=== PATIENT | male | born 1955 | race Caucasian/White ===

== ENCOUNTER → 2016-08-26 | Outpatient (CLI) | payer BC ==
[~2016-08-26] MED LIST: AMOX-358 PO; TRAM-42 PO
--- NOTE | 2016-08-26 14:22 | Diagnostic Imaging Report ---
PROCEDURE: US Carotid Duplex Bilateral. TECHNIQUE: Multiple real-time grayscale images were obtained over the carotid arteries in various projections bilaterally. Additional duplex Doppler and color Doppler images were also obtained. INDICATION: Near syncope. FINDINGS: Grayscale images demonstrate no significant plaque. Carotid Doppler demonstrates patency of the common, internal and external carotid arteries bilaterally. There is antegrade flow in the vertebral arteries. Peak systolic velocities in the right ICA are 52, 53, and 54 cm/s and on the left 35, 53, and 53 cm/s. ICA/CCA ratios are up to 0.9 on the right and up to 0.9 on the left. IMPRESSION: Estimated underlying carotid stenosis is in the range of 0-25% bilaterally. Dictated by: Dictated on workstation # [id number]
== END ==
LOC: RAD 13:43
PROVIDERS: ATTEND Family Medicine
DX: R55 Syncope and collapse (principal)
CPT/HCPCS: 93880

== ENCOUNTER 2016-08-27 08:11 | Outpatient (RCR) | payer BC ==
[2016-10-13] MEDS ORDERED: ASPI-586 PO (12:30)
[2016-10-13] MEDS ORDERED: FURO20TA4 (12:30)
[2016-10-13] MEDS ORDERED: HYDR-3812 (12:30)
[2016-10-13] MEDS ORDERED: POTA10TA10 (12:30)
[2016-10-13] MEDS ORDERED: WARF-47 (12:30)
[2016-10-13] MEDS ORDERED: [UNRECOGNIZED DRUG - CODE] (12:30)
[2016-10-13] MEDS ORDERED: SIMV40TA4 (12:30)
[2016-10-13] MEDS ORDERED: AMIO200T2 (12:30)
[2016-10-13] MEDS ORDERED: METO-333 PO (16:31)
== END 2016-11-25 | disposition home or self-care (01) ==
LOC: CARD 08:11
PROVIDERS: ATTEND Family Medicine
DX: R55 Syncope and collapse (principal)
CPT/HCPCS: 93225; 93226

== ENCOUNTER → 2016-08-27 | Outpatient (CLI) | payer BC | LOC: CARD 08:08 | PROVIDERS: ATTEND Family Medicine | DX: R55 Syncope and collapse (principal) | CPT/HCPCS: 93005 ==

== ENCOUNTER 2016-10-13 11:36 | Emergency (ER) | payer BC ==
[~2016-10-13] VITALS: Ht 182.9 cm; Wt 90.7 kg
[2016-10-13] MEDS ORDERED: morphine INJ 10 MG/ML 1ML (SYR OR VIAL) ONE (11:42)
[2016-10-13] MEDS ORDERED: NS IV 1000 ML 1,000 ML ONE (11:42)
[2016-10-13] MEDS ORDERED: ASPIRIN 81 MG CHEW (CHILDREN'S ASA) PO ONE (11:45)
[2016-10-13 11:51] LABS: BASOPHILS % (AUTO) 0 % (0-10); EOSINOPHILS # (AUTO) 0.3 10^3/uL (0.0-0.3); EOSINOPHILS % (AUTO) 2 % (0-10); LYMPHOCYTES # (AUTO) 1.2 X 10^3 (1.0-4.0); LYMPHOCYTES % (AUTO) 9 % (12-44); MEAN CORPUSCULAR HEMOGLOBIN 29 PG (25-34); MEAN CORPUSCULAR HGB CONC 34 G/DL (32-36); MEAN CORPUSCULAR VOLUME 86 FL (80-99); MEAN PLATELET VOLUME 9.9 FL (7.4-10.4); MONOCYTES # (AUTO) 1.6 X 10^3 (0.0-1.0); MONOCYTES % (AUTO) 12 % (0-12); NEUTROPHILS # (AUTO) 10.4 X 10^3 (1.8-7.8); NEUTROPHILS % (AUTO) 78 % (42-75); PLATELET COUNT 315 10^3/uL (130-400); RED BLOOD COUNT 5.06 10^6/uL (4.35-5.85); RED CELL DISTRIBUTION WIDTH 13.3 % (10.0-14.5); WHITE BLOOD COUNT 13.4 10^3/uL (4.3-11.0)
--- NOTE | 2016-10-13 11:57 | ED Chest Pain ---
General Stated Complaint: A-FIB/LBP,POST AORTIC VALVE REPLACEMENT Source: patient Exam Limitations: no limitations (KELY FROST APRN) History of Present Illness Time seen by provider: 11:54 Initial Comments To ER with reports of atrial fibrillation, central chest pain, low blood pressure and near syncope at home. Patient had aortic valve replacement as well as the ascending aortic aneurysm resection at [facility] in [facility] by 6 days ago. He's had intermittent atrial fibrillation since discharge, nothing prior to this surgery however. According to the he had a clean coronary angiogram just prior to surgery. His chest pain is no different today than it has been past week. Timing/Duration: 1-2 days Severity/Quality: moderate Radiation: no radiation Activities at Onset: none ASA po FIRMWARE SOFTWARE VERIFICATION ENGINEER: No NTG SL FIRMWARE SOFTWARE VERIFICATION ENGINEER: No Associated Symptoms: shortness of breath (pain with breathing) (KELY FROST APRN) Allergies and Home Medications Allergies Uncoded Allergies: ERYTHROMYCIN (Adverse Reaction, Mild, rash, 01/06/16) Home Medications Amiodarone HCl 200 Mg Tablet, #60 (Reported) Aspirin 81 Mg Tablet.dr, 81 MG PO DAILY, (Reported) Betaxolol HCl 10 Mg Tablet, #30 (Reported) Furosemide 20 Mg Tablet, #60 (Reported) Hydrocodone/Acetaminophen 1 Each Tablet, #24 (Reported) Metoprolol Tartrate 25 Mg Tablet, 25 MG PO BID, #60 Ref 1 Prescribed by: SMITA ADAN on 10/13/16 1631 Potassium Chloride 10 Meq Tablet.er, #30 (Reported) Simvastatin 40 Mg Tablet, #30 (Reported) Warfarin Sodium 2 Mg Tablet, #30 (Reported) Review of Systems Constitutional: see HPI EENTM: No Symptoms Reported Respiratory: See HPI, Other (pleurodynia) Cardiovascular: No Symptoms Reported Genitourinary: No Symptoms Reported Musculoskeletal: no symptoms reported Skin: no symptoms reported Psychiatric/Neurological: No Symptoms Reported (KELY FROST APRN) Past Iucuiij-Gizhfd-Qzcdgi Hx Patient Social History Recent Foreign Travel: No Contact w/Someone Who Travel: No Recent Hopitalizations: No (KELY FROST APRN) Seasonal Allergies Seasonal Allergies: No (KELY FROST APRN) Surgeries HX Surgeries: Yes (Back surgery, Shoulder, Knee, Thumb) Surgeries: Adenoidectomy, Orthopedic, Tonsillectomy (KELY FROST APRN) Respiratory Hx Respiratory Disorders: No (KELY FROST APRN) Cardiovascular Hx Cardiac Disorders: No (KELY FROST APRN) Neurological Hx Neurological Disorders: No (KELY FROST APRN) Reproductive System Hx Reproductive Disorders: No (KELY FROST APRN) Genitourinary Hx Genitourinary Disorders: No (KELY FROST APRN) Gastrointestinal Hx Gastrointestinal Disorders: No (KELY FROST APRN) Musculoskeletal Hx Musculoskeletal Disorders: Yes (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) Musculoskeletal Disorders: Degenerate Disk Disease, Chronic Back Pain (KELY FROST APRN) Endocrine Hx Endocrine Disorders: No (KELY FROST APRN) HEENT HX ENT Disorders: Yes (wears glasses) (KELY FROST APRN) Cancer Hx Cancer: No (KELY FROST APRN) Psychosocial Hx Psychiatric Problems: No (KELY FROST APRN) Integumentary HX Skin/Integumentary Disorder: No (KELY FROST APRN) Blood Transfusions Hx Blood Disorders: No (KELY FROST APRN) Physical Exam Vital Signs Vital Sign - Last 12Hours (SMITA ADAN MD) Vital Signs Capillary Refill : (KELY FROST APRN) General Appearance: No Apparent Distress, WD/WN HEENT: PERRL/EOMI, TMs Normal Neck: Full Range of Motion, Normal Inspection Respiratory: Normal Breath Sounds, No Accessory Muscle Use, No Respiratory Distress Cardiovascular: Normal Peripheral Pulses, Irregularly Irregular (rate of 100- 120), Other (midline sternotomy incision is clean dry and intact with surrounding bruising but no drainage. Lung sounds are equal bilaterally.) Gastrointestinal: Non Tender, Soft Extremity: Normal Capillary Refill, Normal Inspection Neurologic/Psychiatric: Alert, Oriented x3, No Motor/Sensory Deficits Skin: Normal Color, Warm/Dry (KELY FROST APRN) Progress/Results/Core Measures Results/Orders Lab Results Laboratory Tests Test 10/13/16 11:44 10/13/16 15:48 Range/Units White Blood Count 13.4 H 4.3-11.0 10^3/uL Red Blood Count 5.06 4.35-5.85 10^6/uL Hemoglobin 14.9 13.3-17.7 G/DL Hematocrit 43 40-54 % Mean Corpuscular Volume 86 80-99 FL Mean Corpuscular Hemoglobin 29 25-34 PG Mean Corpuscular Hemoglobin Concent 34 32-36 G/DL Red Cell Distribution Width 13.3 10.0-14.5 % Platelet Count 315 130-400 10^3/uL Mean Platelet Volume 9.9 7.4-10.4 FL Neutrophils (%) (Auto) 78 H 42-75 % Lymphocytes (%) (Auto) 9 L 12-44 % Monocytes (%) (Auto) 12 0-12 % Eosinophils (%) (Auto) 2 0-10 % Basophils (%) (Auto) 0 0-10 % Neutrophils # (Auto) 10.4 H 1.8-7.8 X 10^3 Lymphocytes # (Auto) 1.2 1.0-4.0 X 10^3 Monocytes # (Auto) 1.6 H 0.0-1.0 X 10^3 Eosinophils # (Auto) 0.3 0.0-0.3 10^3/uL Basophils # (Auto) 0.0 0.0-0.1 10^3/uL Prothrombin Time 17.7 H 12.2-14.7 SEC INR Comment 1.5 H 0.8-1.4 Activated Partial Thromboplast Time 32 24-35 SEC Sodium Level 135 135-145 MMOL/L Potassium Level 3.9 3.6-5.0 MMOL/L Chloride Level 100 98-107 MMOL/L Carbon Dioxide Level 25 21-32 MMOL/L Anion Gap 10 5-14 MMOL/L Blood Urea Nitrogen 22 H 7-18 MG/DL Creatinine 0.97 0.60-1.30 MG/DL Estimat Glomerular Filtration Rate > 60 BUN/Creatinine Ratio 23 Glucose Level 134 H 70-105 MG/DL Calcium Level 9.4 8.5-10.1 MG/DL Magnesium Level 2.0 1.8-2.4 MG/DL Total Bilirubin 2.3 H 0.1-1.0 MG/DL Aspartate Amino Transf (AST/SGOT) 54 H 5-34 U/L Alanine Aminotransferase (ALT/SGPT) 120 H 0-55 U/L Alkaline Phosphatase 113 40-136 U/L Myoglobin 38.7 10.0-92.0 NG/ML Troponin I 0.78 *H 0.76 *H <0.30 NG/ML Total Protein 6.7 6.4-8.2 GM/DL Albumin 3.4 3.2-4.5 GM/DL (SMITA ADAN MD) My Orders Orders - SMITA ADAN MD Ekg Tracing (10/13/16 12:50) Troponin I (10/13/16 15:43) Metoprolol Tartrate (Ir) Tab (Lopressor (10/13/16 15:45) (SMITA ADAN MD) Medications Given in ED Current Medications Medications Dose Ordered Sig/Jameson Route Start Time Stop Time Status Last Admin Dose Admin Aspirin 324 mg ONCE ONCE PO 10/13/16 11:45 10/13/16 11:46 DC 10/13/16 13:15 243 MG Morphine Sulfate 10 mg STK-MED ONCE .ROUTE 10/13/16 11:42 10/13/16 11:49 DC 10/13/16 11:50 10 MG Sodium Chloride 1,000 ml @ ud STK-MED ONCE .ROUTE 10/13/16 11:42 10/13/16 11:49 DC 10/13/16 11:50 1,000 MLS/HR (SMITA ADAN MD) Vital Signs/I&O Vital Sign - Last 12Hours 10/13/16 10/13/16 10/13/16 11:40 11:40 11:40 Temp 97.2 Pulse 125 Resp 35 B/P (MAP) 101/71 Pulse Ox 94 94 O2 Delivery Nasal Cannula Room Air Nasal Cannula O2 Flow Rate 4.00 4.00 4.00 (SMITA ADAN MD) Progress Note : Progress Note I assumed care of the patient from Kely Frost APRN with evaluation in progress. Patient is here with complaint of left-sided chest pain that radiates into his neck. One week status post aortic valve replacement and aortic aneurysm repair in [place] by Dr. Valle. Patient noted to have elevated troponin. Does have history of pneumothorax status post surgery. Doing well until today when he had increasing chest pain on the left side. noted that he was somewhat hypotensive with systolic blood pressure 90 and brought him to the ER for further evaluation. Patient did have episode of paroxysmal atrial fibrillation this morning which markedly increases his pain and makes him weak. This was noted on presentation but quickly resolved on its own without any intervention. Post resolution EKG shows sinus rhythm without any significant abnormalities and compares well to previous. I did discuss the case with Dr. Valle in [place]. He states that he would be happy to the care for him at their hospital at this with the like to do or he can follow-up as scheduled. The troponin is likely the result of the surgery and not acutely diseases he had heart catheterization during the procedure and showed clean coronary arteries. We did discuss the pneumothorax and this appears to be somewhat resolved from previous per description. All findings and concerns were discussed with the patient and family. The will be comfortable taking him home but she would like to establish cardiology care here. I did discuss the case with Dr. Marquis and he will see the patient in the ER. 1545: Patient seen by him. We will repeat troponin and if there is declining, patient will be discharged home. He is also recommending metoprolol 5 mg by mouth twice a day first dose now. This was ordered. 1628: Repeat troponin has declined. I did discuss this with the patient and his . He is overall feeling better now. Discharged home with return precautions. Patient and family verbalize understanding instructions and agreement with plan. (SMITA ADAN MD) ECG Initial ECG Impression Date: Oct 13, 2016 Initial ECG Impression Time: 11:39 Initial ECG Rate: 124 Initial ECG Rhythm: A Fib/Flutter Comment Atrial fibrillation with rapid ventricular response. Question of inferior depression although wandering baseline noted on EKG. This was discussed with the radiologist who agrees with that assessment. Interpreted by me. EKG : EKG Time: 12:08 Rate: 81 Comment Sinus rhythm with normal axis. No evidence of ST elevation OR. Appears well to previous at outside facility of for October 2016. Interpreted by me. (SMITA ADAN MD) Diagnostic Imaging Diagonstic Imaging: Xray Plain Films/CT/US/NM/MRI: chest Comments [facility] [place], [place] NAME: HEMANT KRAUSE [facility] REC#: [id number] PT STATUS: REG ER : 1955 PHYSICIAN: KELY FROST PLATFORM MATERIAL HANDLER MANAGER ADMIT DATE: 10/13/16/ER Draft Date of Exam:10/13/16 CHEST 1 VIEW, AP/PA ONLY INDICATION: History of atrial fibrillation. Recent chest surgery. COMPARISON: None. FINDINGS: Single frontal radiographic view of the chest was obtained and demonstrates mild/moderate cardiomegaly. Pulmonary vasculature however is within normal limits. Lungs show some patchy opacities within the left lung base and potential small left effusion. No large effusion is seen on the right. There is soft tissue emphysema overlying the left chest, but no pneumothorax is seen on either side. Sternotomy wires are noted. Bony structures otherwise show no gross acute abnormalities. Prosthetic aortic valve is also present. IMPRESSION: 1. Soft tissue emphysema but no evidence of pneumothorax on either side. 2. Patchy atelectasis and/or infiltrate within the left lung base. 3. Small left effusion is not excluded. 4. Mild/ moderate cardiomegaly but no evidence of overt failure. Dictated on workstation # [id number] Dict: 10/13/16 1216 Trans: 10/13/16 1219 [id number] Interpreted by: BALDEMAR BRUNNER Electronically signed by: Diagonstic Imaging: CT Plain Films/CT/US/NM/MRI: chest Comments Draft Date of Exam:10/13/16 CT ANGIO CHEST W PROCEDURE: CT angiography of the chest with contrast. TECHNIQUE: Multiple contiguous axial images were obtained through the chest after uneventful bolus administration of intravenous contrast. Reconstructed CTA MIP acquisitions were also performed. INDICATION: Chest pain and shortness of breath. The patient had valve replacement one week ago. CONTRAST: 125 mL of Omnipaque 350 was administered intravenously. FINDINGS: There are aortic valve replacement artifacts and sternotomy fixated with wires in good position. There is soft tissue air seen along the left chest wall and in the left axilla and supraclavicular region. There is also pneumomediastinum and a small left pneumothorax. There is no pneumothorax on the right side. The cardiac size is enlarged with a small to moderate pericardial effusion. The thoracic aorta is normal in caliber with no dissection. The pulmonary arteries are well opacified with no filling defects to suggest pulmonary embolism. The thoracic aorta is normal in caliber with no dissection. There is homogeneous consolidation in the left lower lobe and to lesser extent in the right lower lobe, favored to be atelectasis related. Bilateral small pleural effusions are also seen. No significantly enlarged lymph nodes or masses are present. No hilar lymphadenopathy. No axillary lymphadenopathy. The osseous structures appear grossly unremarkable. IMPRESSION: 1. There is a 5% left pneumothorax and left chest wall and mediastinal air seen. This could potentially be residual postoperative and post chest tube placement and removal related to the recent surgery. Consider a followup chest x-ray tomorrow to ensure it is resolving. 2. Bibasilar area of consolidation, more on the left side, favored to be related to atelectasis. There are bilateral small effusions. 3. Small to moderate pericardial effusion. 4. The findings were discussed with Mr. Kely Frost, the ER physician assistant track and field coach taking care of the patient, at the time of dictation. Dictated on workstation # [id number] Dict: 10/13/16 1324 Trans: 10/13/16 1349 [id number] Interpreted by: GARRET CROWE MD Electronically signed by: (SMITA ADAN MD) Departure Impression Impression: Primary Impression: Chest pain Qualified Codes: R07.9 - Chest pain, unspecified Additional Impression: Pneumothorax on left Disposition: 01 HOME, SELF-CARE Condition: Stable Departure-Patient Inst. Decision time for Depature: 16:30 (SMITA ADAN MD) Referrals: MIGUEL ANGEL WINCHESTER MD (PCP/Family) Primary Care Physician Patient Instructions: Chest Pain (DC), Atrial Fibrillation (DC) Add. Discharge Instructions: Take medications as directed. Drink plenty of fluids. Follow-up with your Dr. in a few days for recheck. Return for worsening, fever, vomiting, weakness, breathing problems or other concerns as needed. Scripts Metoprolol Tartrate (Metoprolol Tartrate) 25 Mg Tablet 25 MG PO BID, #60 TAB 1 Refill Prov: SMITA ADAN MD 10/13/16 Copy Copies To 1: MIGUEL ANGEL WINCHESTER MD Copies To 2: Naveen MARQUIS MD, PETER J APRN Oct 13, 2016 11:57 SMITA ADAN MD Oct 13, 2016 14:29
[2016-10-13 12:00] LABS: INR 1.5 (0.8-1.4); PROTHROMBIN TIME PATIENT 17.7 SEC (12.2-14.7)
[2016-10-13 12:09] LABS: ALANINE AMINOTRANSFERASE 120 U/L (0-55); ALBUMIN 3.4 GM/DL (3.2-4.5); ANION GAP 10 MMOL/L (5-14); ASPARTATE AMINO TRANSFERASE 54 U/L (5-34); BILIRUBIN,TOTAL 2.3 MG/DL (0.1-1.0); BLOOD UREA NITROGEN 22 MG/DL (7-18); BUN/CREATININE RATIO 23; CALCIUM 9.4 MG/DL (8.5-10.1); CARBON DIOXIDE 25 MMOL/L (21-32); CHLORIDE 100 MMOL/L (98-107); CREATININE SERUM 0.97 MG/DL (0.60-1.30); GFR ESTIMATED > 60; GLUCOSE 134 MG/DL (70-105); POTASSIUM 3.9 MMOL/L (3.6-5.0); SODIUM 135 MMOL/L (135-145); TOTAL PROTEIN 6.7 GM/DL (6.4-8.2)
[2016-10-13 12:16] LABS: MYOGLOBIN SERUM 38.7 NG/ML (10.0-92.0)
--- NOTE | 2016-10-13 12:20 | Diagnostic Imaging Report ---
INDICATION: History of atrial fibrillation. Recent chest surgery. COMPARISON: None. FINDINGS: Single frontal radiographic view of the chest was obtained and demonstrates mild/moderate cardiomegaly. Pulmonary vasculature however is within normal limits. Lungs show some patchy opacities within the left lung base and potential small left effusion. No large effusion is seen on the right. There is soft tissue emphysema overlying the left chest, but no pneumothorax is seen on either side. Sternotomy wires are noted. Bony structures otherwise show no gross acute abnormalities. Prosthetic aortic valve is also present. IMPRESSION: 1. Soft tissue emphysema but no evidence of pneumothorax on either side. 2. Patchy atelectasis and/or infiltrate within the left lung base. 3. Small left effusion is not excluded. 4. Mild/ moderate cardiomegaly but no evidence of overt failure. Dictated by: Dictated on workstation # [id number]
[2016-10-13] MEDS ORDERED: HYDR-3812 (12:30)
[2016-10-13] MEDS ORDERED: [UNRECOGNIZED DRUG - CODE] (12:30)
[2016-10-13] MEDS ORDERED: FURO20TA4 (12:30)
[2016-10-13] MEDS ORDERED: WARF-47 (12:30)
[2016-10-13] MEDS ORDERED: POTA10TA10 (12:30)
[2016-10-13] MEDS ORDERED: SIMV40TA4 (12:30)
[2016-10-13] MEDS ORDERED: ASPI-586 PO (12:30)
[2016-10-13] MEDS ORDERED: AMIO200T2 (12:30)
[2016-10-13] MEDS ORDERED: CATHETER FLUSH 10 ML SYR IV PRN (12:45)
[2016-10-13] MEDS ORDERED: IOHEXOL 350 MG/ML 150 ML (OMNIPAQUE 350) VIAL IV ONE (12:45)
--- NOTE | 2016-10-13 13:49 | Diagnostic Imaging Report ---
PROCEDURE: CT angiography of the chest with contrast. TECHNIQUE: Multiple contiguous axial images were obtained through the chest after uneventful bolus administration of intravenous contrast. Reconstructed CTA MIP acquisitions were also performed. INDICATION: Chest pain and shortness of breath. The patient had valve replacement one week ago. CONTRAST: 125 mL of Omnipaque 350 was administered intravenously. FINDINGS: There are aortic valve replacement artifacts and sternotomy fixated with wires in good position. There is soft tissue air seen along the left chest wall and in the left axilla and supraclavicular region. There is also pneumomediastinum and a small left pneumothorax. There is no pneumothorax on the right side. The cardiac size is enlarged with a small to moderate pericardial effusion. The thoracic aorta is normal in caliber with no dissection. The pulmonary arteries are well opacified with no filling defects to suggest pulmonary embolism. The thoracic aorta is normal in caliber with no dissection. There is homogeneous consolidation in the left lower lobe and to lesser extent in the right lower lobe, favored to be atelectasis related. Bilateral small pleural effusions are also seen. No significantly enlarged lymph nodes or masses are present. No hilar lymphadenopathy. No axillary lymphadenopathy. The osseous structures appear grossly unremarkable. IMPRESSION: 1. There is a 5% left pneumothorax and left chest wall and mediastinal air seen. This could potentially be residual postoperative and post chest tube placement and removal related to the recent surgery. Consider a followup chest x-ray tomorrow to ensure it is resolving. 2. Bibasilar area of consolidation, more on the left side, favored to be related to atelectasis. There are bilateral small effusions. 3. Small to moderate pericardial effusion. 4. The findings were discussed with Mr. Crescencio Frost, the ER physician retail assistant manager taking care of the patient, at the time of dictation. Dictated by: Dictated on workstation # [id number]
[2016-10-13] MEDS ORDERED: meTOprolol TARTRATE 25 MG (LOPRESSOR) TABLET PO ONE (15:45)
--- NOTE | 2016-10-13 16:18 | Consultation-Cardiology ---
HPI-Cardiology Cardiology Consultation: Date of Consultation 10/13/16 Date of Admission Attending Physician Admitting Physician Андрей Shell MD Consulting Physician Naveen MARQUIS MD HPI: Time Seen by Provider: 16:07 Chief Complaint: Chest pain This is a 61-year-old gentleman who had recent aortic valve surgery with a mechanical valve due to severe aortic stenosis and aortic aneurysm repair in another hospital a week ago. He presents with complains of chest pain which is similar to the chest discomfort he is been having since surgery at the incision site. However this chest pain was more intense but the same quality. The patient denies any other cardiac symptoms including shortness of breath, palpitations, near syncope or syncope. The chest pain does not radiate and is reproducible. It was associated with rapid heart rate which was found to be atrial fibrillation and his blood pressure at that point in time was systolic 90 mmHg. He was therefore transferred to the ER. The pain was relieved with pain medications given in the ER. There is no radiation. There are no other associated symptoms. Review of Systems-Cardiology Review of Systems Constitutional: No As described under HPI, No no symptoms reported, No chills, No fever, No lightheadedness, No malaise, No tiredness, No weight loss, No weight gain, No other Eyes: No As described under HPI, No no symptoms reported, No blindness, No blurred vision, No contact lenses, No drainage, No decreased acuity, No foreign body sensation, No glasses, No inflammation, No pain, No photophobia, No previous injury, No shadows, No tunnel vision, No other, No vision change Ears/Nose/Throat: No As described under HPI, No no symptoms reported, No chronic hearing loss, No epistaxis, No ear discharge, No ear pain, No loose teeth, No mouth pain, No mouth swelling, No nasal drainage, No nose pain, No recent hearing loss, No throat pain, No throat swelling, No ulcerations, No other Respiratory: No no symptoms reported, No As described under HPI, No cough, No orthopnea, No shortness of breath, No SOB with excertion, No SOB at rest, No stridor, No wheezing, No other Cardiovascular: chest pain Gastrointestinal: No no symptoms reported, No As described under HPI, No abdomen distended, No abdominal pain, No blood streaked bowels, No constipation , No diarrhea, No difficulty swallowing, No nausea, No poor appetite, No poor fluid intake, No rectal bleeding, No vomiting, No other, No nausea/vomiting/ diarrhea, No stool coloration changes Genitourinary: No no symptoms reported, No As described under HPI, No burning, No dysuria, No discharge, No frequency, No flank pain, No hematuria, No incontinence, No pain, No urgency, No other, No urine frequency changes, No urine coloration changes Musculoskeletal: No no symptoms reported, No As describe under HPI, No back pain, No gout, No joint pain, No joint swelling, No muscle pain, No muscle stiffness, No neck pain, No other Skin: No no symptoms reported, No As described under HPI, No change in color, No change in hair/nails, No dryness, No lesions, No lumps, No rash, No other, No skin related problems, No ulcerations, No rash on exposed areas, No ulcerations on exposed areas Psychiatric/Neurological: No As described under HPI, No anxiety, No depression , No emotional problems, No focal weakness, No headache, No no symptoms reported , No numbness, No other, No pre-existing deficit, No seizure, No syncope, No tingling, No tremors, No weakness XGN-Arfogu-Dyusyo Hx Patient Social History Alcohol Use: Denies Use Recreational Drug Use: No Smoking Status: Never a Smoker Recent Foreign Travel: No Recent Infectious Disease Expo: No Hospitalization with Isolation: Denies Past Medical History PMH As described under Assessment. Allergies and Home Medications Allergies Uncoded Allergies: ERYTHROMYCIN (Adverse Reaction, Mild, rash, 01/06/16) Home Medications Amiodarone HCl 200 Mg Tablet, #60 (Reported) Aspirin 81 Mg Tablet.dr, 81 MG PO DAILY, (Reported) Betaxolol HCl 10 Mg Tablet, #30 (Reported) Furosemide 20 Mg Tablet, #60 (Reported) Hydrocodone/Acetaminophen 1 Each Tablet, #24 (Reported) Potassium Chloride 10 Meq Tablet.er, #30 (Reported) Simvastatin 40 Mg Tablet, #30 (Reported) Warfarin Sodium 2 Mg Tablet, #30 (Reported) Physical Exam-Cardiology Physical Exam Vital Signs/I&O Vital Sign - Last 12Hours 10/13/16 10/13/16 10/13/16 11:40 11:40 11:40 Temp 97.2 Pulse 125 Resp 35 B/P (MAP) 101/71 Pulse Ox 94 94 O2 Delivery Nasal Cannula Room Air Nasal Cannula O2 Flow Rate 4.00 4.00 4.00 Capillary Refill : Less Than 3 Seconds Constitutional: No appears stated age, No AAO x 3, No apparent distress, No PERRL, No well-developed, No well-nourished, No other HEENT: No PERRL, No normal ENT inspection, No TMs normal, No pharynx normal, No scleral icterus (R), No scleral icterus (L), No pale conjunctivae (R), No pale conjunctivae (L), No photophobia, No TM abnormal (R), No TM abnormal (L), No pharyngeal erythema, No tonsillar exudate, No other, No discharge, No EOMI, No hearing is well preserved, No hard of hearing, No oral hygience is good, No ulceration, No xanthelasmas are seen Neck: No non-tender, No full range of motion, No supple, No normal inspection, No carotid bruit, No limited range of motion, No lymphadenopathy (R), No lymphadenopathy (L), No tender lateral, No tender midline, No thyromegaly, No other, No carotid pulses are 2 + bilaterally, No with good upstrokes Respiratory: chest tender Cardiovascular: regular rate-rhythm, S1 and S2, other (sternal incision noted) Gastrointestinal: No tender, No soft, No round, No distended, No pulsatile mass , No organomegaly, No guarding, No rebound, No tenderness, No hernia, No mass, No audible bowel sounds, No abnormal bowel sounds, No abdominal bruits, No spleenomegaly, No other Rectal: deferred Extremities: No normal range of motion, No non-tender, No normal inspection, No pedal edema, No calf tenderness, No normal capillary refill, No pelvis stable , No calf tenderness, No inflammation, No pedal edema, No slow capillary refill , No swelling, No other, No abrasion, No clubbing, No cyanosis, No ecchymosis, No laceration, No no lower extremity edema bilateral, No significant edema, No tenderness, No wound Neurologic/Psychiatric: No clock and watch hands dipper II-XII nml as tested, No no motor/sensory deficits, No alert, No normal mood/affect, No oriented x 3, No abnormal cerebellar tests, No abnormal clock and watch hands dipper II-XII, No abnormal gait, No aphasia, No EOM palsy, No facial droop, No motor weakness, No sensory deficit, No depressed affect, No disoriented x 3, No other, No grossly intact, No power is 5/5 both on sides Skin: No normal color, No warm/dry, No cyanosis, No cool, No diaphoresis, No damp, No ecchymosis, No jaundice, No mottled, No pallor, No rash, No tattoos/ piercings, No ulcerations, No rash on exposed areas, No ulcerations on exposed areas, No other Data Review Labs Laboratory Tests 10/13/16 11:44: White Blood Count 13.4H, Red Blood Count 5.06, Hemoglobin 14.9, Hematocrit 43, Mean Corpuscular Volume 86, Mean Corpuscular Hemoglobin 29, Mean Corpuscular Hemoglobin Concent 34, Red Cell Distribution Width 13.3, Platelet Count 315, Mean Platelet Volume 9.9, Neutrophils (%) (Auto) 78H, Lymphocytes (%) (Auto) 9L , Monocytes (%) (Auto) 12, Eosinophils (%) (Auto) 2, Basophils (%) (Auto) 0, Neutrophils # (Auto) 10.4H, Lymphocytes # (Auto) 1.2, Monocytes # (Auto) 1.6H, Eosinophils # (Auto) 0.3, Basophils # (Auto) 0.0, Prothrombin Time 17.7H, INR Comment 1.5H, Activated Partial Thromboplast Time 32, Sodium Level 135, Potassium Level 3.9, Chloride Level 100, Carbon Dioxide Level 25, Anion Gap 10, Blood Urea Nitrogen 22H, Creatinine 0.97, Estimat Glomerular Filtration Rate > 60, BUN/Creatinine Ratio 23, Glucose Level 134H, Calcium Level 9.4, Magnesium Level 2.0, Total Bilirubin 2.3H, Aspartate Amino Transf (AST/SGOT) 54H, Alanine Aminotransferase (ALT/SGPT) 120H, Alkaline Phosphatase 113, Myoglobin 38.7, Troponin I 0.78*H, Total Protein 6.7, Albumin 3.4 10/13/16 15:48: ECG Impression ECG Comment Initial EKG showed atrial fibrillation with rapid ventricular rate. Second EKG showed sinus rhythm with no significant ST-T wave abnormalities A/P-Cardiology Assessment/Admission Diagnosis Aortic stenosis status post recent aortic valve replacement with metallic valve. Paroxysmal atrial fibrillation, Positive troponin, Posterior chest pain. Plan AVR: No issues. Metallic valve. According to the surgery team INR target 1.52.0. Paroxysmal atrial fibrillation: Spontaneous conversion to normal rhythm when I saw the patient. The patient presented with atrial fibrillation with rapid ventricular rate and that was associated with worsening of the chest discomfort. Patient is already on amiodarone 200 mg twice a day. We'll start metoprolol 25 mg twice a day. Continue Coumadin with INR target of 2.0-2.5. Positive troponin/chest pain: Likely secondary to incisional pain. Mild elevation of troponin could be secondary to post surgery. The patient had normal coronary angiography 1 week ago. If this is secondary to an acute coronary syndrome the differential should include embolic ACS secondary to atrial fibrillation with subtherapeutic INR. INR was 1.5 today. I will request another troponin and if the troponin levels are trending down this is unlikely to be a new event and most likely secondary to post cardiac surgery. Small pneumothorax post surgery. CT chest shows no pulmonary embolism. The patient and family wants to go home. 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 Thank you for your consultation. Please call me if you have any questions. Tonie Marquis MD, FACP, FACC, FSCAI, FHRS, CCDS Interventional Cardiology Cardiac Electrophysiology Vascular Medicine and Endovascular Interventions Clinical Quality Measures AMI/AHF: ASA po Prior to arrival: Naveen Smith MD Oct 13, 2016 16:18
[2016-10-13] MEDS ORDERED: METO-333 PO (16:31)
[2016-10-13 16:38] VITALS: BP 107/78
== END 2016-10-13 16:45 ==
LOC: EDUNIT# 11:36 → ER 11:38
DX: J93.9 Pneumothorax, unspecified (principal); M51.36 Other intervertebral disc degeneration, lumbar region; I48.91 Unspecified atrial fibrillation; Z90.49 Acquired absence of other specified parts of digestive tract; Z90.89 Acquired absence of other organs; Z98.890 Other specified postprocedural states; Z79.82 Long term (current) use of aspirin; Z95.2 Presence of prosthetic heart valve; Z79.01 Long term (current) use of anticoagulants
CPT/HCPCS: 36415; 71010; 71275; 80053; 83735; 83874; 84484; 85025; 85610; 85730; 93005; 93041; 96361; 96374

== ENCOUNTER → 2016-11-03 | Outpatient (CLI) | payer BC ==
[~2016-11-03] MED LIST changes: +AMIO200T2; +ASPI-586 PO; +FURO20TA4; +HYDR-3812; +METO-333 PO; +POTA10TA10; +SIMV40TA4; +WARF-47; +[UNRECOGNIZED DRUG - CODE]
--- NOTE | 2016-11-03 15:18 | Diagnostic Imaging Report ---
INDICATION: Pleural effusion. FINDINGS: Limited Real-time grayscale images were obtained over the left chest. There is a moderately large nonloculated left pleural effusion. The volume is approximately 500-600 cc. IMPRESSION: Moderately large nonloculated left pleural effusion as described. This would be amenable to thoracentesis, if clinically warranted. Dictated by: Dictated on workstation # [id number]
== END ==
LOC: RAD 14:25
PROVIDERS: ATTEND Surgery
DX: J90 Pleural effusion, not elsewhere classified (principal)
CPT/HCPCS: 76604

== ENCOUNTER → 2016-11-03 | Outpatient (CLI) | payer BC ==
--- NOTE | 2016-11-03 08:48 | Diagnostic Imaging Report ---
INDICATION: Shortness of breath. PA and lateral chest obtained at 8:08 a.m. and compared with 10/13/2016. FINDINGS: There is cardiomegaly with postop change with aortic valve replacement. There is mild central vascular prominence without yazmin edema. There is a moderate-sized left pleural effusion which is new compared to 10/13/2016, with some passive atelectasis versus infiltrate in the left base. IMPRESSION: Cardiomegaly and postoperative change. There is mild central vascular prominence but no yazmin edema. There is a moderate-sized left pleural effusion which is new compared with 10/13/2016, with passive atelectasis versus infiltrate in the left base. Report was called and faxed to Miriam at office of Dr. Shell @ 8:46 AM/een. Dictated by: Dictated on workstation # [id number]
== END ==
LOC: RAD 07:38
PROVIDERS: ATTEND Family Medicine
DX: I51.7 Cardiomegaly (principal); J90 Pleural effusion, not elsewhere classified; Z95.2 Presence of prosthetic heart valve
CPT/HCPCS: 71020

== ENCOUNTER → 2016-11-05 | Outpatient (CLI) | payer BC ==
--- NOTE | 2016-11-05 12:58 | Diagnostic Imaging Report ---
INDICATION: Pleural effusion. FINDINGS: Two views of the chest show normal heart size and vascularity. There is left basilar atelectasis and left-sided effusion which has shown slight improvement since the prior study from 11/03/2016. The right lung is clear. There is no effusion on the right. IMPRESSION: Improving chest. Dictated by: Dictated on workstation # [id number]
== END ==
LOC: RAD 12:32
PROVIDERS: ATTEND Surgery
DX: J90 Pleural effusion, not elsewhere classified (principal)
CPT/HCPCS: 71020

== ENCOUNTER 2016-12-03 15:02 | Outpatient (RCR) | payer BC | END 2016-12-06 | disposition home or self-care (01) | LOC: CARD 15:02 | PROVIDERS: ATTEND Internal Medicine Interventional Cardiology | DX: I35.0 Nonrheumatic aortic (valve) stenosis (principal); E78.5 Hyperlipidemia, unspecified; R55 Syncope and collapse; J90 Pleural effusion, not elsewhere classified; R06.02 Shortness of breath | CPT/HCPCS: 93270 ==

== ENCOUNTER → 2016-12-04 | Outpatient (CLI) | payer BC ==
[2016-12-04] VITALS (32 sets, daily range): BP systolic 67–138; BP diastolic 44–91
[~2016-12-04] VITALS: Ht 188 cm; Wt 100.7 kg
[~2016-12-04] MED LIST changes: +ATROPINE INJECTION 1 MG/10 ML SYR (ABBOTT) ONE; +NS IV 1000 ML 1,000 ML IV ONE; +NS IV 1000 ML 1,000 ML ONE
--- NOTE | 2016-12-04 23:26 | OPERATIVE REPORT ---
DATE OF SERVICE: 12/04/2016 ATTENDING PHYSICIAN: Dr. Tonie Marquis. PERFORMING PHYSICIAN: Dr. Tonie Marquis. FAMILY PHYSICIAN: Dr. Андрей Shell. PROCEDURE PERFORMED: Tilt-table testing. INDICATION AND HISTORY: This is a 61-year-old gentleman who has a history of cardiac surgery. He has been having episodes of near syncope. The patient was referred for further evaluation of autonomic function. DESCRIPTION OF PROCEDURE: The risks, benefits and alternatives of procedure were explained to the patient. All his questions were answered, and he understood and signed informed consent. The patient was brought to the electrophysiology lab in a fasting, nonsedated state. He was tilted to 70 degrees under continuous blood pressure, heart rate, EKG and pulse oximeter monitoring. Baseline blood pressure was 138/86 mmHg and heart rate was 67 BPM. Respiratory rate was 18 breaths per minute and pulse oximetry was 97%. The patient was then tilted to 70 degrees under continuous blood pressure, heart rate, EKG and pulse oximeter monitor. The patient's heart rate remained between 67 and 71 BPM and blood pressure stayed between 111/78 mmHg and 138/86 mmHg. The patient was then put in a supine position after 10 minutes. A nitroglycerin spray was given. The patient stayed stable for the next 5 minutes. Heart rate was between 71 and 72 BPM and blood pressure was 126/74 mmHg and 136/87 mmHg. After 5 minutes of lying supine and giving nitroglycerin spray, the patient was tilted upright at 70 degrees. During this time period, the patient started to feel lightheaded, pale and nauseated and had near syncope. His lowest blood pressure was 67/51 mmHg. His lowest heart rate was 55 BPM. The patient was immediately turned supine. The blood pressure quickly improved to 119/77 mmHg. Heart rate stayed at 59 BPM. The patient improved significantly in the next 1 to 2 minutes. At the end of the procedure, the patient's blood pressure was 134/80 mmHg. Heart rate of 62 BPM and pulse oximetry was 94%. He was not having any symptoms. He was given 1 liter of IV normal saline. The patient tolerated the procedure well, did not have any complications. CONCLUSION: Positive tilt-table test with vasodepressor response. PLAN: The patient will be observed for a short period and can be discharged home afterwards. The etiology of his lightheaded and near syncope spells is most likely vasovagal with a large vasodepressor component. Our recommendation was to increase fluid intake with salt. He will continue with beta rajesh, but we will avoid taking any diuretics or vasodilators. Compression stockings will also be given. At this point in time, we are not sure if he will require Florinef or midodrine and however we will see his response to behavior modification and above lifestyle changes. This was explained in detail to the patient and his . Job ID: [id number] DocumentID: [id number] Dictated Date: 12/04/2016 14:05:46 [employer] Date: 12/04/2016 23:24:56 Dictated By: RENA MARQUIS MD
== END ==
LOC: CARD 11:23
PROVIDERS: ATTEND Internal Medicine Interventional Cardiology
DX: I35.0 Nonrheumatic aortic (valve) stenosis (principal); E78.5 Hyperlipidemia, unspecified; R55 Syncope and collapse; J90 Pleural effusion, not elsewhere classified; R06.02 Shortness of breath
CPT/HCPCS: 93306; 93660

== ENCOUNTER 2016-12-31 08:01 | Outpatient (RCR) | payer BC ==
[~2016-12-31 08:01] MED LIST changes: +ACHD5005; -ATROPINE INJECTION 1 MG/10 ML SYR (ABBOTT) ONE; -HYDR-3812; -NS IV 1000 ML 1,000 ML IV ONE; -NS IV 1000 ML 1,000 ML ONE
== END 2017-03-10 | disposition home or self-care (01) ==
LOC: CARD 08:01
PROVIDERS: ATTEND Internal Medicine Interventional Cardiology
DX: I35.0 Nonrheumatic aortic (valve) stenosis (principal); E78.5 Hyperlipidemia, unspecified; R55 Syncope and collapse; J90 Pleural effusion, not elsewhere classified; R06.02 Shortness of breath

== ENCOUNTER → 2017-02-13 | Outpatient (CLI) | payer BC ==
[~2017-02-13] MED LIST changes: -ACHD5005; +HYDR-3812
--- NOTE | 2017-02-13 13:41 | Diagnostic Imaging Report ---
PROCEDURE: CT chest without contrast. TECHNIQUE: Multiple contiguous axial images were obtained through the chest without the use of intravenous contrast. INDICATION: Posterior chest pain. COMPARISON: 10/13/2016 CT angiography of the chest. FINDINGS: Noncontrasted images on today's study show the lungs to be well aerated. No infiltrates or masses are present. No pleural effusions or pericardial effusion. Median sternotomy changes are present. Prosthetic aortic valve noted. Heart is not significantly enlarged. No mediastinal or hilar adenopathy of pathologic size demonstrated. Bone windows show mild diffuse hypertrophic changes throughout the thoracic spine. The chest wall shows normal musculature. Subcutaneous fat appears normal throughout. No skin thickening. IMPRESSION: 1. Postoperative residue with median sternotomy changes. 2. No acute findings within the chest. 3. No evidence of chest wall masses. No evidence of bony rib fractures or masses. Dictated by: Dictated on workstation # [id number]
== END ==
LOC: RAD 13:09
PROVIDERS: ATTEND Family Medicine
DX: R07.89 Other chest pain (principal); Z98.890 Other specified postprocedural states
CPT/HCPCS: 71250

== ENCOUNTER → 2017-08-12 | Outpatient (CLI) | payer BC ==
[~2017-08-12] MED LIST changes: +ACHD5005; -HYDR-3812
--- NOTE | 2017-08-12 17:44 | Diagnostic Imaging Report ---
INDICATION: Cough. COMPARISON: 11/05/16 FINDINGS: Frontal and lateral views of the chest demonstrate prior sternotomy with aortic valve replacement. The heart is mildly enlarged but stable. The lungs are clear. There is no pneumothorax. Osseous structures are age-appropriate. IMPRESSION: Stable cardiac enlargement without pulmonary edema or infiltrate. Dictated by: Dictated on workstation # [id number]
== END ==
LOC: RAD 16:40
PROVIDERS: ATTEND Nurse Practitioner Family
DX: I51.7 Cardiomegaly (principal); R05 Cough
CPT/HCPCS: 71046

== ENCOUNTER → 2017-11-25 | Outpatient (CLI) | payer BC ==
[~2017-11-25] MED LIST changes: -AMIO200T2; +AMIO200T4
== END ==
LOC: CARD 14:04
PROVIDERS: ATTEND Internal Medicine Interventional Cardiology
DX: I71.9 Aortic aneurysm of unspecified site, without rupture (principal); I35.0 Nonrheumatic aortic (valve) stenosis; E78.5 Hyperlipidemia, unspecified; R55 Syncope and collapse; I07.1 Rheumatic tricuspid insufficiency
CPT/HCPCS: 93306

== ENCOUNTER → 2018-12-21 | Outpatient (CLI) | payer BC ==
--- NOTE | 2018-12-21 16:04 | Diagnostic Imaging Report ---
INDICATION: Shortness of air for one week. TIME OF EXAM: 03:28 p.m. Correlation is made with prior chest from 08/12/2017. FINDINGS: Changes of median sternotomy and CABG are noted. Heart size is normal. Lungs are clear. No infiltrates are seen. There is no effusion or pneumothorax. IMPRESSION: No acute cardiopulmonary process is detected. Dictated by: Dictated on workstation # [id number]
== END ==
LOC: RAD 15:12
PROVIDERS: ATTEND Family Medicine
DX: R06.02 Shortness of breath (principal); R42 Dizziness and giddiness
CPT/HCPCS: 71046

== ENCOUNTER 2020-01-29 23:09 | Emergency (ER) | payer BC ==
[~2020-01-29] VITALS: Ht 187.9 cm; Wt 94.0 kg
[~2020-01-29 23:09] MED LIST changes: -AMIO200T4; +AMIO200T6; +SIMV40TA25; -SIMV40TA4
--- NOTE | 2020-01-29 23:11 | NUR ---
UNABLE TO OBTAIN NIH R/T RECEPTIVE AND EXPRESSIVE APHASIA. PT UNABLE TO FOLLOW COMMANDS. Addendum: 01/30/20 at 0206 by ADAL UNABLE TO COMPLETE DYSPHAGIA SCREEN WELL R/T RECEPTIVE AND EXPRESSIVE APHASIA AND INABILITY TO FOLLOW COMMANDS.
[2020-01-29] MEDS ORDERED: ONDANSETRON 4 MG/2 ML (SDV) Z0FRAN ONE (23:12)
--- NOTE | 2020-01-29 23:22 | NUR ---
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 STATES LAST KNOWN WELL TIME WAS 0. PT WALKED TO LIVING ROOM FROM BEDROOM AND WAS NOT ACTING RIGHT/NORMAL PER . HAD PT SIT DOWN ON COFFEE TABLE. HE THEN BECAME DIAPHORETIC, FACIAL DROOPING, TROUBLE SPEAKING, AND RIGHT ARM FLACCID. CALLED 911 AND WHEN ARRIVED SHE LEFT PT TO OPEN THE DOOR AND WHEN SHE RETURNED SHE FOUND HE HAD SLID DOWN TO FLOOR.
[2020-01-29 23:25] LABS: BASOPHILS % (AUTO) 1 % (0-10); EOSINOPHILS # (AUTO) 0.3 10^3/uL (0.0-0.3); EOSINOPHILS % (AUTO) 3 % (0-10); HEMATOCRIT 49 % (40-54); HEMOGLOBIN 15.9 g/dL (13.3-17.7); LYMPHOCYTES # (AUTO) 2.4 10^3/uL (1.0-4.0); LYMPHOCYTES % (AUTO) 31 % (12-44); MEAN CORPUSCULAR HEMOGLOBIN 29 pg (25-34); MEAN CORPUSCULAR HGB CONC 33 g/dL (32-36); MEAN CORPUSCULAR VOLUME 90 fL (80-99); MEAN PLATELET VOLUME 9.5 fL (9.0-12.2); MONOCYTES # (AUTO) 0.9 10^3/uL (0.0-1.0); MONOCYTES % (AUTO) 11 % (0-12); NEUTROPHILS % (AUTO) 53 % (42-75); PLATELET COUNT 243 10^3/uL (130-400); WHITE BLOOD COUNT 7.5 10^3/uL (4.3-11.0)
[2020-01-29 23:39] LABS: ALBUMIN 4.1 GM/DL (3.2-4.5)
[2020-01-29 23:40] LABS: CHLORIDE 106 MMOL/L (98-107); SODIUM 140 MMOL/L (135-145)
[2020-01-29 23:41] LABS: CALCIUM 8.8 MG/DL (8.5-10.1)
[2020-01-29 23:42] LABS: GLUCOSE 133 MG/DL (70-105)
[2020-01-29 23:43] LABS: CARBON DIOXIDE 22 MMOL/L (21-32)
--- NOTE | 2020-01-29 23:43 | NUR ---
2317-TO CT WITH JILLIAN MENDESDATA ARCHITECT MANAGER. 2343- BACK FROM CT AT THIS TIME AND PT PLACED ON BEDSIDE MONITORS.
[2020-01-29 23:44] LABS: BILIRUBIN,TOTAL 1.1 MG/DL (0.1-1.0)
[2020-01-29 23:45] LABS: ALKALINE PHOSPHATASE 77 U/L (40-136)
[2020-01-29 23:46] LABS: GFR ESTIMATED > 60
[2020-01-29 23:47] LABS: BUN/CREATININE RATIO 20
[2020-01-29 23:49] LABS: ALANINE AMINOTRANSFERASE 20 U/L (0-55)
[2020-01-29] MEDS: CATHETER FLUSH 10 ML SYR IV PRN (23:53)
[2020-01-29 23:59] LABS: BILIRUBIN,URINE NEGATIVE (NEGATIVE); CLARITY,URINE SL CLOUDY; COLOR,URINE YELLOW; GLUCOSE, URINE (UA) NEGATIVE (NEGATIVE); KETONES,URINE NEGATIVE (NEGATIVE); LEUKOCYTE ESTERASE ,URINE NEGATIVE (NEGATIVE); NITRITE,URINE NEGATIVE (NEGATIVE); PH,URINE 5.5 (5-9); PROTEIN,URINE NEGATIVE (NEGATIVE)
[2020-01-30 00:10] LABS: FIBRIN DEGRADATION PRODUCTS 0.12 UG/ML (0.00-0.49); PROTHROMBIN TIME PATIENT 18.9 SEC (12.2-14.7)
[2020-01-30 00:19] LABS: BACTERIA,URINE TRACE /HPF; CALCIUM OXALATE CRYSTALS,UR RARE /LPF; RBC,URINE 0-2 /HPF; SQUAMOUS EPITHELIAL CELL,UR RARE /HPF; WBC,URINE 0-2 /HPF
--- NOTE | 2020-01-30 00:21 | ED Neurological Problem ---
General Chief Complaint: Neuro-Stroke Like Symptoms Stated Complaint: STROKE Nursing Triage Note: TO ED ROOM 5 [facility]IA [facility] FROM HOME. LAST KNOWN WELL TIME 0. PER PT WENT TO GET READY FOR BED AND THEN CAME OUT AND WAS NOT ACTING RIGHT. HAD PT SIT DOWN ON COFFEE TABLE WHEN PT BECAME VERY DIAPHORETIC AND RIGHT ARM BECAME FLACCID, HE COULD MOVE LEFT ARM. PT WAS EXPERIENCING FACIAL DROOP PER AND COULD NOT SPEAK. PT TAKES COUMADIN QHS BEFORE BED (UNKNOWN IF TOOK THIS EVENING). PT ALSO TAKES 81MG ASA PO DAILY AND METOPROLOL DAILY. Nursing Sepsis Screen: No Definite Risk Source: family, old records Exam Limitations: no limitations History of Present Illness Date Seen by Provider: Jan 29, 2020 Time Seen by Provider: 23:10 Initial Comments This 64-year-old gentleman presents to the emergency room via EMS with acute symptoms of stroke. Last known well time was 22:40 right after watching the football game with his . He got up to get ready for bed and then returned to the room where his was. He was not acting himself and reached out and touched her but did not speak. She sat him down and called 911. He slid down against the couch into the floor while she got up to let the ambulance crew in. She noted right-sided facial droop, flaccid right arm, and loss of speech. Those deficits persist on arrival. He is hypertensive. He does not follow any instructions. He has a prosthetic aortic valve and is on warfarin therapy. Blood sugar was normal. Allergies and Home Medications Allergies Uncoded Allergies: ERYTHROMYCIN (Adverse Reaction, Mild, rash, 01/06/16) Home Medications Aspirin 81 Mg Cathy.dr 81 MG PO DAILY, (Reported) Metoprolol Tartrate 25 Mg Tablet, 25 MG PO BID Prescribed by: SMITA ADAN on 10/13/16 1631 Patient Home Medication List Home Medication List Reviewed: Yes Review of Systems Review of Systems Constitutional: no symptoms reported Eyes: No Symptoms Reported Ears, Nose, Mouth, Throat: no symptoms reported Respiratory: no symptoms reported Cardiovascular: see HPI Gastrointestinal: no symptoms reported Genitourinary: no symptoms reported Musculoskeletal: no symptoms reported Skin: no symptoms reported Psychiatric/Neurological: See HPI Endocrine: No Symptoms Reported Hematologic/Lymphatic: No Symptoms Reported Past Gntifbo-Vzimpl-Yhelfs Hx Past Med/Social Hx: Reviewed Nursing Past Med/Soc Hx Patient Social History Alcohol Use: Denies Use Number of Drinks Today: AA Alcohol Beverage of Choice: Beer Recreational Drug Use: No Smoking Status: Never a Smoker Recent Foreign Travel: No Contact w/Someone Who Travel: No Recent Infectious Disease Expo: No Recent Hopitalizations: No Physical Abuse: No Sexual Abuse: No Mistreated: No Fear: No Seasonal Allergies Seasonal Allergies: No Past Medical History Surgeries: Yes (Back surgery, Shoulder, Knee, Thumb, MECHANICAL AORTIC VALVE REPLACEMENT) Adenoidectomy, Orthopedic, Tonsillectomy, Valve Replacement Respiratory: No Cardiac: Yes (MECHANICAL AORTIC VALVE REPLACEMENT) Neurological: No Reproductive Disorders: No Genitourinary: No Gastrointestinal: Yes Gastroesophageal Reflux Musculoskeletal: Yes (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) Degenerate Disk Disease, Chronic Back Pain Endocrine: No HEENT: No Cancer: No Psychosocial: No Nursing Suicide Risk Notes: R/O STROKE-UNABLE TO OBTAIN BY PT Integumentary: No Blood Disorders: No Physical Exam Vital Signs Vital Signs - First Documented 01/29/20 01/29/20 01/30/20 23:11 23:56 01:22 Temp 34.3 Pulse 65 Resp 16 B/P (MAP) 164/84 (110) Pulse Ox 93 O2 Delivery Room Air O2 Flow Rate 2.00 Capillary Refill : Less Than 3 Seconds Height, Weight, BMI Height: 6'2.00" Weight: 222lbs. 0.0oz. 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 II-XII (Left-sided gaze preference), aphasia (Expressive and receptive aphasia), facial droop (Right-sided facial droop), motor weakness (Flaccid right arm) Crainal Nerves: PERRL Motor/Sensory: weak motor strength RUE Skin: normal color, warm/dry Progress/Results/Core Measures Results/Orders Lab Results Laboratory Tests Test 01/29/20 23:15 01/29/20 23:50 01/29/20 23:56 Range/Units White Blood Count 7.5 4.3-11.0 10^3/uL Red Blood Count 5.43 4.30-5.52 10^6/uL Hemoglobin 15.9 13.3-17.7 g/dL Hematocrit 49 40-54 % Mean Corpuscular Volume 90 80-99 fL Mean Corpuscular Hemoglobin 29 25-34 pg Mean Corpuscular Hemoglobin Concent 33 32-36 g/dL Red Cell Distribution Width 12.9 10.0-14.5 % Platelet Count 243 130-400 10^3/uL Mean Platelet Volume 9.5 9.0-12.2 fL Immature Granulocyte % (Auto) 0 % Neutrophils (%) (Auto) 53 42-75 % Lymphocytes (%) (Auto) 31 12-44 % Monocytes (%) (Auto) 11 0-12 % Eosinophils (%) (Auto) 3 0-10 % Basophils (%) (Auto) 1 0-10 % Neutrophils # (Auto) 4.0 1.8-7.8 10^3/uL Lymphocytes # (Auto) 2.4 1.0-4.0 10^3/uL Monocytes # (Auto) 0.9 0.0-1.0 10^3/uL Eosinophils # (Auto) 0.3 0.0-0.3 10^3/uL Basophils # (Auto) 0.0 0.0-0.1 10^3/uL Immature Granulocyte # (Auto) 0.0 0.0-0.1 10^3/uL Prothrombin Time 18.9 H 12.2-14.7 SEC INR Comment 1.5 H 0.8-1.4 Activated Partial Thromboplast Time 28 24-35 SEC D-Dimer 0.12 0.00-0.49 UG/ML Sodium Level 140 135-145 MMOL/L Potassium Level 4.0 3.6-5.0 MMOL/L Chloride Level 106 98-107 MMOL/L Carbon Dioxide Level 22 21-32 MMOL/L Anion Gap 12 5-14 MMOL/L Blood Urea Nitrogen 22 H 7-18 MG/DL Creatinine 1.10 0.60-1.30 MG/DL Estimat Glomerular Filtration Rate > 60 BUN/Creatinine Ratio 20 Glucose Level 133 H 70-105 MG/DL Calcium Level 8.8 8.5-10.1 MG/DL Corrected Calcium 8.7 8.5-10.1 MG/DL Total Bilirubin 1.1 H 0.1-1.0 MG/DL Aspartate Amino Transf (AST/SGOT) 19 5-34 U/L Alanine Aminotransferase (ALT/SGPT) 20 0-55 U/L Alkaline Phosphatase 77 40-136 U/L Troponin I < 0.028 <0.028 NG/ML Total Protein 7.0 6.4-8.2 GM/DL Albumin 4.1 3.2-4.5 GM/DL Urine Color YELLOW Urine Clarity SL CLOUDY Urine pH 5.5 5-9 Urine Specific [place] 1.025 H 1.016-1.022 Urine Protein NEGATIVE NEGATIVE Urine Glucose (UA) NEGATIVE NEGATIVE Urine Ketones NEGATIVE NEGATIVE Urine Nitrite NEGATIVE NEGATIVE Urine Bilirubin NEGATIVE NEGATIVE Urine Urobilinogen 0.2 < = 1.0 MG/DL Urine Leukocyte Esterase NEGATIVE NEGATIVE Urine RBC (Auto) TRACE-I NEGATIVE Urine RBC 0-2 /HPF Urine WBC 0-2 /HPF Urine Squamous Epithelial Cells RARE /HPF Urine Crystals PRESENT H /LPF Urine Calcium Oxalate Crystals RARE H /LPF Urine Bacteria TRACE /HPF Urine Casts NONE /LPF Urine Mucus SMALL H /LPF Urine Culture Indicated YES Glucometer 126 H 70-110 MG/DL My Orders Orders - KASIA ARIZA MD Ondansetron Injection (Zofran Injectio (01/29/20 23:12) Cbc With Automated Diff (01/29/20 23:17) Protime With Inr (01/29/20 23:17) Partial Thromboplastin Time (01/29/20 23:17) Comprehensive Metabolic Panel (01/29/20 23:17) Fibrin Degradation Products (01/29/20 23:17) Troponin I (01/29/20 23:17) Ua Culture If Indicated (01/29/20 23:17) Catheter(Urinary) Insert & Ass 03,15 (01/29/20 23:17) Ekg Tracing (01/29/20 23:17) Accucheck Stat ONCE (01/29/20 23:17) Ed Iv/Invasive Line Start (01/29/20 23:17) Ed Iv/Invasive Line Start (01/29/20 23:17) Vital Signs Stroke Patient Q15M (01/29/20 23:17) Ct Head Wo-R/O Stroke (01/29/20 23:17) O2 (01/29/20:17) Intake & Output 06,14,22 (01/29/20 23:17) Monitor-Rhythm Ecg Trace Only (01/29/20:) Dysphagia Screening Tool (01/29/20:) Post Thrombolytic Adminstratio (01/29/20 23:17) Ct Angio Head/Neck (01/29/20 23:17) Iohexol Injection (Omnipaque 350 Mg/Ml 1 (01/30/20 00:00) Received Contrast (Hold Metformin- Contr (01/30/20 00:00) Sodium Chloride Flush (Catheter Flush Sy (01/30/20 00:00) Ns (Ivpb) (Sodium Chloride 0.9% Ivpb Bag (01/30/20 00:00) Chest 1 View, Ap/Pa Only (01/30/20 00:01) Ct Head Perfusion W/ Contrast (01/30/20 00:01) Urine Culture (01/29/20 23:50) Alteplase (Activase) (Activase Injection (01/30/20 00:36) Alteplase (Activase) (Activase Injection (01/30/20 00:45) Post Thrombolytic Adminstratio (01/30/20 00:39) Ns (Ivpb) (Sodium C... W/Nicardipine Iv (01/30/20 00:45) Nicardipine Iv For Drip (Cardene I.V. (O (01/30/20 00:38) Ns (Ivpb) (Sodium Chloride 0.9%) (01/30/20 00:38) Iohexol Injection (Omnipaque 350 Mg/Ml 1 (01/30/20 01:15) Received Contrast (Hold Metformin- Contr (01/30/20 01:15) Sodium Chloride Flush (Catheter Flush Sy (01/30/20 01:15) Ns (Ivpb) (Sodium Chloride 0.9% Ivpb Bag (01/30/20 01:15) Medications Given in ED Current Medications Medications Dose Ordered Sig/Jameson Route Start Time Stop Time Status Last Admin Dose Admin Alteplase, Recombinant (0.9mg/ kg-max 90mg) with ... ONCE ONCE IV 01/30/20 00:45 01/30/20 00:46 DC 11/23/20 00:59 76.6 MG Iohexol 100 ml ONCE ONCE IV 01/30/20 00:00 01/30/20 00:01 DC 01/29/20 23:53 75 ML Iohexol 100 ml ONCE ONCE IV 01/30/20 01:15 01/30/20 01:16 DC 01/30/20 01:15 45 ML Ondansetron HCl 4 mg STK-MED ONCE .ROUTE 01/29/20 23:12 01/29/20 23:14 DC 01/29/20 23:16 4 MG Sodium Chloride 10 ml NEEDED PRN IV 01/30/20 00:00 01/30/20 01:22 DC 01/30/20 01:15 10 ML Sodium Chloride 100 ml ONCE ONCE IV 01/30/20 00:00 01/30/20 00:01 DC 01/29/20 23:53 80 ML Sodium Chloride 100 ml ONCE ONCE IV 01/30/20 01:15 01/30/20 01:16 DC 01/30/20 01:15 80 ML Vital Signs/I&O 01/29/20 01/29/20 01/30/20 01/30/20 23:11 23:56 01:02 01:22 Temp 34.3 36.0 Pulse 65 73 Resp 16 16 B/P (MAP) 164/84 (110) 180/85 152/75 (116) Pulse Ox 93 O2 Delivery Room Air Nasal Cannula Nasal Cannula O2 Flow Rate 2.00 2.00 Blood Pressure Mean: 110 Progress Progress Note : Time: 01:00 Progress Note Patient was seen and examined upon arrival. Stroke activation was paged. Accurate NIH score could not be obtained due to his profound receptive and expressive aphasia. He was promptly taken to CT. Noncontrast study showed no evidence of hemorrhage. This was followed by CT angiogram of the head and neck. He was taken back to the emergency room. Dr. Avalos, stroke neurologist at [facility], was consulted at 00:06. INR and CT angiogram results were then available. INR was 1.[address] angiogram demonstrated a mid M1 occlusion on the left. Patient is at increased risk for hemorrhagic events with alteplase therapy. However, he still meets criteria for treatment with alteplase. 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 They acknowledge the risks of thrombolytic therapy and wish to proceed with alteplase therapy. Alteplase was immediately ordered. Patient has been marginally hypertensive. Nicardipine drip has been hung to manage blood pressure during TPA administration. tPA is now infusing. Transfer arrangements have been made for transport to [facility]. Unfortunately all flight services are unavailable due to weather. He will be transported by [facility] emergently. Initial ECG Impression Date: Jan 30, 2020 Initial ECG Impression Time: 23:50 Initial ECG Rate: 61 Initial ECG Rhythm: Normal Sinus Initial ECG Impression: Normal Comment Normal sinus rhythm with no ST elevation or depression. No abnormal intervals or axis deviation. Diagnostic Imaging Diagonstic Imaging: Xray Plain Films/CT/US/NM/MRI: chest Comments Chest x-ray viewed by me. Report not yet available. Slight cardiac enl argement. No acute abnormalities in the lung alonso. Sternotomy changes noted. Diagonstic Imaging: CT Plain Films/CT/US/NM/MRI: head Comments Noncontrast CT head viewed by me and stat rad report reviewed. Discussed with the radiologist. There are no acute hemorrhages, masses, or other acute pathology is noted. Diagonstic Imaging: CT Plain Films/CT/US/NM/MRI: other (Angiogram head and neck) Comments CT angiogram head and neck viewed by me. Stat rad report reviewed and discussed with the radiologist. There is a left-sided mid M1 occlusion. Departure Impression Primary Impression: CVA (cerebral vascular accident) Qualified Codes: I63.512 - Cerebral infarction due to unspecified occlusion or stenosis of left middle cerebral artery Additional Impressions: Right arm weakness Facial droop Aphasia Disposition: XFER SHT-TRM HOSP Condition: Stable Transfer Transfer Reason: Exceeds level of care Time Spoke to Accepting Phy: 00:06 Transfer Progress Notes Accepted by Dr. Avalos Transfer Time: 01:12 Transfer Facility: [facility] Method of Transfer: EMS Departure-Patient Inst. Referrals: MIGUEL ANGEL WINCHESTER MD (PCP/Family) Primary Care Physician Copy Copies To 1: MIGUEL ANGEL WINCHESTER MD, JOSHUA T MD Jan 30, 2020 00:21
[2020-01-30 00:24] LABS: INR 1.5 (0.8-1.4)
[2020-01-30] MEDS ORDERED: ALTEPLASE 100 MG/VIAL (ACTIVASE) ONE (00:36)
[2020-01-30] MEDS ORDERED: niCARdipine IV FOR DRIP 50 MG KIT ONE (00:38)
[2020-01-30] MEDS ORDERED: NS (IVPB) 250 ML ONE (00:38)
[2020-01-30] MEDS ORDERED: niCARdipine IV 50 MG in NS (IVPB) 230 ML IV SCH (00:45)
[2020-01-30] MEDS ORDERED: ALTEPLASE 100 MG/VIAL (ACTIVASE) IV ONE (00:45)
[2020-01-30] MEDS ORDERED: IOHEXOL 350 MG/ML 100 ML (OMNIPAQUE 350) VIAL IV ONE ×2 (01:15)
[2020-01-30] MEDS ORDERED: CATHETER FLUSH 10 ML SYR IV PRN (01:15)
[2020-01-30] MEDS ORDERED: NS 100 ML (IVPB) BAG IV ONE ×2 (01:15)
[2020-01-30] MEDS ORDERED: HOLD METFORMIN - RECEIVED CONTRAST 20 ML VIAL IV SCH ×2 (01:15)
[2020-01-30] MEDS: CATHETER FLUSH 10 ML SYR IV PRN (01:15)
[2020-01-30 01:22] VITALS: BP 152/75
--- NOTE | 2020-01-30 07:15 | Diagnostic Imaging Report ---
PROCEDURE: CT head wo r/o stroke. TECHNIQUE: Multiple contiguous axial images were obtained through the brain without the use of intravenous contrast. Auto Exposure Controls were utilized during the CT exam to meet ALARA standards for radiation dose reduction. INDICATION: Altered mental status and weakness. CT HEAD: CT images of the head were obtained. FINDINGS: Ventricles and sulci are within normal limits for size. There is no intracranial hemorrhage identified. There is no abnormal mass effect or shift of midline structures. There is increased density at the level of the left middle cerebral artery. IMPRESSION: Hyperdense left middle cerebral artery could be related to thrombus. CTA would be useful for assessment. Dictated by: Dictated on workstation # [id number]
--- NOTE | 2020-01-30 07:19 | Diagnostic Imaging Report ---
PROCEDURE: CT angiography of the head and CT angiography of the neck with and without contrast. TECHNIQUE: Contiguous noncontrast images were obtained from the skull base through the vertex. After intravenous contrast administration, helical CT angiography of the neck was performed. Source data was reformatted into 3D MIP projections. Delayed post contrast acquisition was also obtained. Auto Exposure Controls were utilized during the CT exam to meet ALARA standards for radiation dose reduction. INDICATION: Altered mental status. CTA neck: There is a normal three-vessel branching pattern arising from the aortic arch. Carotid and vertebral arteries are patent in the neck without evidence of intimal abnormality. No filling defect, stenosis or occlusion is identified. There is mild diffuse cervical spondylosis. No abnormal contrast enhancement is identified. Distal internal carotid arteries and the basilar artery are unremarkable in appearance. There is occlusive thrombosis of the left M1 segment with mild contrast opacification of left middle cerebral artery vessels beyond the trifurcation. Right middle cerebral and both anterior cerebral arteries are patent. There is patency of both posterior cerebral arteries without evidence of aneurysm or vascular malformation. IMPRESSION: Occlusive thrombosis of left M1 segment without other large vessel occlusion or filling defect identified. Dictated by: Dictated on workstation # [id number]
--- NOTE | 2020-01-30 07:21 | Diagnostic Imaging Report ---
INDICATION: Neurologic deficit, altered mental status and stroke protocol. CT perfusion is performed with significant decrease in cerebral blood flow in the distribution of left middle cerebral artery. There is prolongation of Tmax in the left middle cerebral artery distribution with approximately 200 mL of brain tissue demonstrating Tmax greater than 6 seconds. Mismatch ratio is 2.0. IMPRESSION: Large left middle cerebral artery distribution ischemic penumbra with probable core infarct in the left frontal temporal region. Dictated by: Dictated on workstation # [id number]
--- NOTE | 2020-01-30 07:25 | Diagnostic Imaging Report ---
INDICATION: Altered mental status AP view of the chest is obtained with comparison made to study of 12/21/2018. There is suboptimal inspiration with mild basilar atelectasis. No consolidation, pneumothorax or overt edema is identified. Median sternotomy wires are present. IMPRESSION: Hypoventilation without evidence of acute abnormality in the chest. Dictated by: Dictated on workstation # [id number]
== END 2020-01-30 01:22 | disposition short-term general hospital (02) ==
LOC: EDUNIT# 23:09 → ER 23:10
DX: I63.9 Cerebral infarction, unspecified (principal); R53.1 Weakness; R29.810 Facial weakness; R47.01 Aphasia; Z88.1 Allergy status to other antibiotic agents; Z79.82 Long term (current) use of aspirin
CPT/HCPCS: 0042T; 51702; 70450; 70496; 70498; 71045; 80053; 81000; 82962; 84484; 85025; 85379; 85610; 85730; 87088; 92977; 93005; 93041; 99291; 36415

== ENCOUNTER → 2020-12-19 | Outpatient (CLI) | payer BC, MEDICARE | LOC: LABNPT 06:40 | PROVIDERS: ATTEND Orthopaedic Surgery | DX: Z01.812 Encounter for preprocedural laboratory examination (principal); Z20.822 Contact with and (suspected) exposure to COVID-19 | CPT/HCPCS: 87635 ==

== ENCOUNTER → 2020-12-27 | Outpatient (CLI) | payer BC, MEDICARE | LOC: CARD 09:00 | PROVIDERS: ATTEND Family Medicine | DX: I51.7 Cardiomegaly (principal); Z95.2 Presence of prosthetic heart valve | CPT/HCPCS: 93306 ==